=== PATIENT | female | born 1995 | race Caucasian/White ===

== ENCOUNTER 2020-05-25 08:44 | Outpatient (CLI) | payer OTHER, SELFPAY ==
--- NOTE | ~2020-05-25 | US_ITS ---
EXAMINATION: US right upper quadrant EXAM DATE: 05/25/2020 09:07 INDICATION: Right upper quadrant pain. TECHNIQUE: Multiple grayscale and Doppler images of the abdomen right upper quadrant were obtained (b y a technologist who performed the scan) and subsequently reviewed. There is no prior study for kike graham. FINDINGS: The pancreatic head and body are normal in appearance. The pancreatic tail is not visualized. The l iver has normal echogenicity and contour. There are no focal liver lesions identified. There is no evidence of intrahepatic biliary duct dilation. Portal venous flow was seen in the hepatopedal, nor mal direction and has normal Doppler waveform. No right-sided hydronephrosis. Common bile duct measures 3 mm, which is normal. The gallbladder wall is normal in thickness, with ex pected amount of distention. No sonographic evidence of pericholecystic fluid. There is no cholelit hiases. Technologist performing exam reports patient did not demonstrate sonographic Ceja's sign. Please note that this sign is less reliable in patients who have received pain medication. IMPRESSION: 1. Unremarkable abdominal ultrasound exam. Reviewed, dictated and finalized at location A. [employer]
== END 2020-05-25 08:45 | disposition home or self-care (01) ==
LOC: CHSIMG 08:47
PROVIDERS: PCP Internal Medicine; Visit Provider Internal Medicine
DX: R10.11 Right upper quadrant pain (principal)
CPT/HCPCS: 76705

== ENCOUNTER 2020-07-12 00:59 | Outpatient (CLI) | payer OTHER, SELFPAY ==
[2020-07-12 17:10] LABS: SARS-CoV-2 RNA PCR Negative
== END 2020-07-12 01:00 | disposition home or self-care (01) ==
LOC: ANHCOVIDDT 00:59
PROVIDERS: PCP Internal Medicine; Visit Provider Surgery
DX: Z01.818 Encounter for other preprocedural examination (principal); Z20.828 Contact with and (suspected) exposure to other viral communicable diseases
CPT/HCPCS: 87635; C9803; U0003

== ENCOUNTER 2020-07-15 00:59 | Day surgery (SDC) | payer OTHER, SELFPAY ==
[2020-07-07 13:42] VITALS: BMI 46.6
--- NOTE | 2020-07-15 06:54 | WPDANESEPPF ---
Anes - Initial Pre Proc Eval Procedure: Operation Date: 07/15/20 08:30 Proposed Procedures p Esophagogastroduodenoscopy - Napoleon Peralta DO Date/Time: 07/15/20 06:54 Surgeon: Napoleon Peralta DO Pre Op Diagnosis: gerd Patient Data Age: 24 Gender: F Height: 1.55 m Weight: 112 kg Allergies Allergy/AdvReac Type Severity Reaction Status Date / Time Penicillins Allergy Severe Redness of Verified 07/07/20 13:43 Skin Home Medications Medication Instructions Recorded Confirmed Type norgestrel-ethinyl estradiol 1 tablet PO DAILY 07/07/20 07/07/20 History [Low-Ogestrel (28)] pantoprazole 40 mg PO BID 07/07/20 07/07/20 History venlafaxine 37.5 mg PO HS 07/07/20 07/07/20 History Patient hx anesthesia problems: none Family hx anesthesia problems: none [facility] Past Medical History Medical History (Updated 07/15/20 @ 06:54 by Todd Nogueira MD) Anxiety Depression GERD (gastroesophageal reflux disease) Morbid obesity with BMI of 40.0-44.9, adult Social History Social History Smoking status: Never smoker Alcohol intake: never Substance use: never Substance use type: does not use Living arrangements: with family Spiritual care concerns: No Anes - Eval Final PreProcedure Day of Procedure 07/15/20 06:54 Patient weight: obese Heart: regular rate and rhythm Lungs: clear to auscultation and normal air movement Airway: Mallampati scale class II Neurological: alert and oriented Last oral intake: >/= 8 hours ASA classification: III Emergent: no Anesthetic plan: proceed Anesthesia type and monitoring: general GIVS Informed Consent: The patient's anesthetic plan and its attendant risks and benefits were discussed with the patient/family/POA. Questions were solicited and answers provided to the satisfaction of the patient/family/POA.
[2020-07-15 07:07] VITALS: BP 189/140; PULSE 114; RESP 18; TEMP 36.5; O2SAT 99
[2020-07-15] MEDS: LACTATED RINGERS 1,000 ML 150 ML IV CONT (07:13)
--- NOTE | 2020-07-15 08:24 | PM.IMHP ---
H&P: HPI History of Present Illness Date/Time: 07/15/20 08:24 Chief Complaint: GERD Narrative: Bernie Barrientos is a 24 year old female presents with acid reflux for the past month. she has not identified any certain foods that make it worse. She gets heartburn and reflux daily. Review of Systems Review of Systems: All systems reviewed & are unremarkable except as noted in HPI and below Constitutional: Constitutional: Denies chills, Denies fever(s), Denies headache(s) and Denies weight loss Eyes: Eyes: Denies change in vision ENT: Denies dizziness, Denies headache(s), Denies neck mass and Denies throat swelling Cardiovascular: Cardiovascular: Denies chest pain, Denies lightheadedness and Denies dyspnea Respiratory: Respiratory: Denies cough, Denies dyspnea and Denies wheezing Gastrointestinal: Gastrointestinal: Denies abdominal pain, Denies change in bowel habits, Denies nausea and Denies vomiting Genitourinary: Genitourinary: Denies hematuria and Denies dysuria Musculoskeletal: Musculoskeletal: Reports as per HPI Integumentary/Breasts: Skin/Breast: Reports as per HPI Neurologic: Denies dizziness and Denies headache(s) Allergic/Immunologic: Allergic/Immunologic: Denies throat swelling and Denies wheezing PMF Past Medical History Medical History Anxiety Depression GERD (gastroesophageal reflux disease) Morbid obesity with BMI of 40.0-44.9, adult Social History Social History Smoking status: Never smoker Alcohol intake: never Substance use: never Substance use type: does not use Living arrangements: with family Spiritual care concerns: No Meds Home Medications and Allergies Home Medications Medication Instructions Recorded Confirmed Type norgestrel-ethinyl estradiol 1 tablet PO DAILY 07/07/20 07/07/20 History [Low-Ogestrel (28)] pantoprazole 40 mg PO BID 07/07/20 07/07/20 History venlafaxine 37.5 mg PO HS 07/07/20 07/07/20 History Allergies Allergy/AdvReac Type Severity Reaction Status Date / Time Penicillins Allergy Severe Redness of Verified 07/15/20 07:05 Skin Vital Signs Vital Signs - 24 hr 07/15/20 07:07 Temperature 36.5 C Pulse Rate 114 H Respiratory Rate 18 Blood Pressure 189/140 H Pulse Oximetry 99 Exam Const: General: no acute distress and alert Orientation/consciousness: patient oriented x3 HENMT: Head: normocephalic and atraumatic Ears: hearing grossly normal bilaterally General nose exam: Normal nares present Mouth: Yes Normal oral and palatal mucosa present Eyes: Periorbital: periorbital findings normal Sclera: sclerae normal EOM: EOMs intact bilaterally Neck: Neck: normal visual inspection, no lymphadenopathy and trachea midline Chest: Chest palpation & inspection: normal inspection of the chest Resp: Effort & Inspection: normal respiratory effort Auscultation: clear to auscultation bilaterally Cardio: Jugular venous distension: no JVD Rate: regular rate Rhythm: regular rhythm Heart sounds: S1 normal heart sound present and S2 normal heart sound present Peripheral pulses: Peripheral pulses 2+ throughout GI: Inspection: normal to inspection GI Palp: Yes Soft to palpation, No Tenderness to palpation present (GI), No Guarding due to palpation present (GI) and No Rebound tenderness present Percussion: Yes normal to percussion Auscultation: normal bowel sounds : General: Yes no CVA tenderness Back/Spine/Pelvis: Back: no CVA tenderness Neuro: General: patient oriented x3, no focal motor deficits and CN's II-XI intact bilaterally Cognition (Neuro): normal cognition Speech: normal speech Motor exam (neuro): 5/5 motor strength present throughout Extrem: General: capillary refill normal and no clubbing, cyanosis or edema Assessment and Plan Assessment and plan (1) GERD (gastroesophageal reflux disease):
[2020-07-15 08:40] VITALS: BP 152/106; PULSE 94; RESP 25; O2SAT 94
[2020-07-15 08:50] VITALS: BP 163/109; PULSE 87; RESP 21; O2SAT 97
[2020-07-15 09:00] VITALS: BP 178/116; PULSE 84; RESP 18; O2SAT 99
== END 2020-07-15 09:11 | disposition home or self-care (01) ==
PROVIDERS: PCP Internal Medicine; Visit Provider Surgery
PROC: 0DJ08ZZ Inspection of Upper Intestinal Tract, Via Natural or Artificial Opening Endoscopic (ICD-10-PCS; CPT 43235; principal; 2020-07-15 08:30)
DX: K21.9 Gastro-esophageal reflux disease without esophagitis (principal); F41.8 Other specified anxiety disorders; E66.01 Morbid (severe) obesity due to excess calories; Z68.42 Body mass index [BMI] 45.0-49.9, adult
CPT/HCPCS: 43235; J2704; J7120

== ENCOUNTER 2020-10-18 10:22 | Outpatient (CLI) | payer OTHER, SELFPAY ==
--- NOTE | ~2020-10-18 | US_ITS ---
EXAMINATION: US retroperitoneal comp, US retroperitoneal duplex ltd DATE: 10/18/2020 10:53 INDICATION: hypertension TECHNIQUE: Multiple grayscale, color Doppler, and pulsed Doppler images of the kidneys and renal umesh jamin were obtained. COMPARISON: None. FINDINGS: There is normal renal contour and echogenicity bilaterally. The right kidney measures 11.4 x 5.2 x 6. 6 cm and the left 11.0 x 6.1 x 4.8 cm. 1.7 cm anechoic cyst at the lateral right kidney. There is no hydronephrosis. The aorta peak systolic velocity is 73 cm/s. The right renal artery peak systolic velocity is 132 cm/ s in the proximal segment, 112 cm/s in the mid segment, and 82 cm/s in the distal segment. The left r enal artery peak systolic velocity is 94 cm/s in the proximal segment, 91 cm/s in the mid segment, an d 98 cm/s in the distal segment. IMPRESSION: 1. 1.7 cm right renal cyst. Otherwise normal kidneys with no hydronephrosis. 2. No Doppler evidence of renal artery stenosis. Reviewed, dictated and finalized at location B. IMPRESSION: 1. 1.7 cm right renal cyst. Otherwise normal kidneys with no hydronephrosis. 2. No Doppler evidence of renal artery stenosis.
== END 2020-10-18 10:23 | disposition home or self-care (01) ==
LOC: CHSIMG 10:24
PROVIDERS: PCP Internal Medicine; Visit Provider Internal Medicine
DX: I10 Essential (primary) hypertension (principal)
CPT/HCPCS: 76770; 93976

== ENCOUNTER 2020-10-29 16:20 | Emergency (ER) | payer OTHER, SELFPAY ==
--- NOTE | 2020-10-29 16:34 | ED.DIZZY ---
HPI - Dizziness General Chief Complaint: Nausea/Vomiting/Diarrhea Stated Complaint: not eating, dizzy Time Seen by Provider: 10/29/20 16:34 Source: patient and RN notes reviewed Mode of arrival: ambulatory Limitations: no limitations History of Present Illness MD elicited complaint: lightheadedness Related Data Home Medications Medication Instructions Recorded Confirmed Low-Ogestrel (28) 1 tablet PO DAILY 07/07/20 07/07/20 pantoprazole 40 mg PO BID 07/07/20 07/07/20 venlafaxine 37.5 mg PO HS 07/07/20 07/07/20 Allergies Allergy/AdvReac Type Severity Reaction Status Date / Time Penicillins Allergy Severe Redness of Verified 07/15/20 07:05 Skin PMFSH Past Medical History Medical History (Updated 07/15/20 @ 08:25 by Napoleon Peralta DO) Anxiety Depression GERD (gastroesophageal reflux disease) Morbid obesity with BMI of 40.0-44.9, adult Social History Social History Smoking status: Never smoker Alcohol intake: never Substance use: never Substance use type: does not use Spiritual care concerns: No Discharge Plan Discharge Prescriptions: No Action venlafaxine 37.5 mg capsule,extended release 24hr 37.5 mg PO HS RF: 0 Low-Ogestrel (28) 0.3-30 mg-mcg tablet 1 tablet PO DAILY RF: 0 pantoprazole 40 mg tablet,delayed release (DR/EC) 40 mg PO BID RF: 0
--- NOTE | 2020-10-29 16:42 | ED.NAVMDI ---
HPI - Nausea/Vomiting/Diarrhea General Chief complaint: Nausea/Vomiting/Diarrhea Stated complaint: not eating, dizzy Time Seen by Provider: 10/29/20 16:34 Source: patient and RN notes reviewed Mode of arrival: ambulatory Limitations: no limitations History of Present Illness MD elicited complaint: nausea, vomiting and abdominal pain (epigastric) Pertinent past history: other (GERD) Onset (ago): day(s) (1) Description of vomiting: food contents Associated nausea: Yes Associated abdominal pain: Yes Location of pain: epigastric Pain consistency: intermittent Severity: moderate Associated symptoms: other (dizziness) Treatment prior to arrival: none Related Data Home Medications Medication Instructions Recorded Confirmed Low-Ogestrel (28) 1 tablet PO DAILY 07/07/20 10/29/20 pantoprazole 40 mg PO BID 07/07/20 10/29/20 venlafaxine 37.5 mg PO HS 07/07/20 10/29/20 amlodipine 10 mg PO DAILY 10/29/20 10/29/20 Allergies Allergy/AdvReac Type Severity Reaction Status Date / Time Penicillins Allergy Severe Redness of Verified 07/15/20 07:05 Skin PMFSH Past Medical History Medical History (Updated 10/29/20 @ 18:49 by Ward Clifton MD) Anxiety Depression GERD (gastroesophageal reflux disease) Morbid obesity with BMI of 40.0-44.9, adult Surgical History Surgical History (Updated 10/29/20 @ 17:04 by Ward Clifton MD) [place] teeth extracted Social History Social History Smoking status: Never smoker Alcohol intake: never Substance use: never Substance use type: does not use Spiritual care concerns: No Exam Const: General: healthy appearing and no acute distress Nutritional Appearance: well nourished and obese morbidly obese Orientation/consciousness: patient oriented x3 Other: female nurse in room during examination. HENMT: Head: normal to inspection Ears: external ears normal Eyes: Pupils: Equal, round and reactive pupils present EOM: EOMs intact bilaterally Neck: Neck: normal visual inspection Resp: Effort & Inspection: normal respiratory effort Auscultation: clear to auscultation bilaterally Cardio: Rate: tachycardic Rhythm: regular rhythm GI: GI Palp: Yes Soft to palpation, Yes Tenderness to palpation present (GI) (epigastric), Yes Guarding due to palpation present (GI) and No Rebound tenderness present Auscultation: normal bowel sounds Back/Spine/Pelvis: Cervical Spine: cervical ROM normal Thoracic/Lumbar Spine: thoraco-lumbar ROM normal Skin: General skin exam: normal color Rashes: no rashes Neuro: General: patient oriented x3, moves all extremities, no meningeal signs and no focal motor deficits Speech: normal speech Gait exam (Neuro): Normal gait present Extrem: General: normal to inspection and no clubbing, cyanosis or edema Psych: Appearance: grossly normal and well kempt Mental Status: mental status grossly normal Affect: normal affect Attitude: cooperative Thought content: Yes Normal thought content present Course Vital Signs Vital signs: Vital Signs Temperature 36.6 C 10/29/20 16:45 Pulse Rate 110 H 10/29/20 16:45 Respiratory Rate 16 10/29/20 16:45 Blood Pressure 138/99 H 10/29/20 16:45 Pulse Oximetry 98 10/29/20 16:45 Temperature 36.6 C 10/29/20 16:45 Pulse Rate 94 10/29/20 19:00 Respiratory Rate 18 10/29/20 19:00 Blood Pressure 142/96 H 10/29/20 19:00 Pulse Oximetry 96 10/29/20 19:00 MDM - Nausea/Vomiting/Diarrhea Lab Data Result diagrams: 10/29/20 17:19 10/29/20 17:19 Labs: Lab Results 10/29/20 10/29/20 10/29/20 Range/Units 17:19 17:19 17:25 WBC 10.8 (4.8-10.8) K/mm3 RBC 5.03 (4.20-5.40) M/mm3 Hgb 13.7 (12.0-15.0) g/dL Hct 41.3 (35.0-49.0) % MCV 82.1 (78.0-102.0) fL MCH 27.2 (27.0-31.0) pg MCHC 33.2 (32.0-36.0) g/dL RDW 12.8 (11.6-14.4) % Plt Count 402 (150-420) K/mm3 MPV 8.9
[2020-10-29 16:45] VITALS: BP 138/99; PULSE 110; RESP 16; TEMP 36.6; O2SAT 98
[2020-10-29] MEDS: MAG HYDROX/ALUMINUM HYD/SIMETH 30 ML, PHENobarb/HYOSCY/ATROPINE/SCOP 32.4 MG, LIDOCAINE... PO (17:06)
--- NOTE | 2020-10-29 17:22 | PC.NURSE ---
Pt states epigastric pain is getting better, but still having some nausea.
[2020-10-29 17:24] LABS: Basophils Absolute Auto 0.03 K/mm3 (0.00-0.10); Basophils Percent Auto 0.3 % (0.0-1.0); Eosinophils Absolute Auto 0.03 K/mm3 (0.02-0.50); Eosinophils Percent Auto 0.3 % (1.0-6.0); Hematocrit 41.3 % (35.0-49.0); Hemoglobin 13.7 g/dL (12.0-15.0); Immature Granulocyte Absolute 0.03 K/mm3 (0.00-0.00); Immature Granulocyte Percent A 0.3 % (0.0-0.0); Lymphocytes Absolute Auto 2.23 K/mm3 (1.10-4.50); Lymphocytes Percent Auto 20.6 % (18.0-42.0); Mean Corpuscular HGB Conc 33.2 g/dL (32.0-36.0); Mean Corpuscular Hemoglobin 27.2 pg (27.0-31.0); Mean Corpuscular Volume 82.1 fL (78.0-102.0); Mean Platelet Volume 8.9 fl (9.2-11.8); Monocytes Absolute Auto 0.58 K/mm3 (0.10-0.90); Monocytes Percent Auto 5.4 % (2.0-11.0); Neutrophils Absolute Auto 7.9 K/mm3 (1.7-7.2); Neutrophils Percent Auto 73.1 % (50.0-70.0); Platelet Count Result 402 K/mm3 (150-420); Red Blood Count 5.03 M/mm3 (4.20-5.40); Red Cell Distribution Width 12.8 % (11.6-14.4); White Blood Count 10.8 K/mm3 (4.8-10.8)
[2020-10-29] MEDS: ONDANSETRON HCL ODT 4 MG TABLET PO (17:24)
[2020-10-29 17:39] LABS: Alanine Aminotransferase 23 U/L (14-59); Albumin Level 3.7 g/dL (3.4-5.0); Alkaline Phosphatase 68 U/L (46-116); Anion Gap 12 mmol/L (8-16); Aspartate Amino Transferase 16 U/L (15-37); Bilirubin,Total 0.5 mg/dL (0.00-1.00); Blood Urea Nitrogen 10 mg/dL (7-18); Calcium 9.4 mg/dL (8.5-10.1); Carbon Dioxide 25 mmol/L (21-32); Chloride 100 mmol/L (98-108); Estimated CRCL calculation 80 ml/min; Estimated Glomerular Filt Rate 60; Glucose 91 mg/dL (70-99); Lipase 72 U/L (73-393); Osmolality Calculated 283 mOsm/kg (285-295); Potassium 3.8 mmol/L (3.5-5.1); Sodium 137 mmol/L (136-145); Total Protein 8.2 g/dL (6.4-8.2)
--- NOTE | 2020-10-29 17:41 | PC.NURSE ---
Pt unable to provide urine sample.
[2020-10-29 17:51] LABS: CRP 2.4 mg/dL (0.0-0.9)
--- NOTE | 2020-10-29 18:08 | PC.NURSE ---
Pt given oral fluids, mother at bedside
[2020-10-29 18:39] LABS: Add Urine Microscopic? YES; Appearance Urine Clear (Clear); Bilirubin Urine 1+ (Negative); Blood Urine Negative (Negative); Color Urine Yellow (Yellow); Glucose Urine UA Negative (Negative); Ketones Urine 2+ (Negative); Leukocyte Esterase Ur Negative LEU/UL (Negative); Nitrate Urine Negative (Negative); Protein Urine 1+ (Negative); Specific Grav Ur >= 1.030 (1.010-1.020); Urobilinogen Urine 0.2 mg/dL (0.2-1.0); pH Urine 5.5 (5.0-8.0)
[2020-10-29 18:45] LABS: RBC Urine 0-2 /hpf (0-2); Squamous Epithelial Cell Urine Few /hpf (Few)
[2020-10-29 18:46] LABS: Bacteria Urine 1+ /hpf; Mucus Urine Few /lpf
[2020-10-29 19:00] VITALS: BP 142/96; PULSE 94; RESP 18; O2SAT 96
== END 2020-10-29 19:00 | disposition home or self-care (01) ==
PROVIDERS: Emergency Provider Emergency Medicine; PCP Internal Medicine
DX: K52.9 Noninfective gastroenteritis and colitis, unspecified (principal); N39.0 Urinary tract infection, site not specified
CPT/HCPCS: 36415; 80053; 81001; 83690; 85025; 86140; 99283; A9270

== ENCOUNTER 2023-09-13 15:12 | Outpatient (CLI) | payer OTHER, SELFPAY ==
--- NOTE | 2023-10-09 15:41 | P.PCNHOL_ITS ---
Holter/Event Monitor Holter/Event Monitor Date of procedure: 09/13/23 Holter/Event Procedure: Event Monitor Indications: Syncope Conclusion: 1. 7 days event monitor between 09/13/23-10/09/23. There are 16 available tra nsmissions for analysis. 2. Underlying rhythm is sinus rhythm. HR range 50-154 bpm; average 72 bpm. 3. No premature supraventricular complexes. No supraventricular tachycardia. 4. There are occasional premature ventricular complexes with total burden of 1%. No ventricular tachycardia. 5. No significant pauses greater than 2 seconds. 6. There are 3 episodes of symptoms of lightheadedness, dizziness, chest pain, and symptom other than listed which demonstrate sinus rhythm, HR range 62-105 bpm.
== END 2023-09-13 15:13 | disposition home or self-care (01) ==
PROVIDERS: PCP Internal Medicine; Visit Provider Internal Medicine
DX: R55 Syncope and collapse (principal)
CPT/HCPCS: 93270

== ENCOUNTER 2024-04-11 15:35 | Emergency (ER) | payer OTHER, SELFPAY ==
--- NOTE | ~2024-04-11 | CT_ITS ---
EXAMINATION: CT abdomen pelvis wo con DATE: 04/11/2024 16:25 INDICATION: LLQ abdominal pain x1 day TECHNIQUE: Computed tomography (CT) of the abdomen and pelvis was performed without intravenous contr ast. Automated exposure control and iterative reconstruction technique were employed. The dose-length product was 891.47 mGy-cm. COMPARISON: None. FINDINGS: Lower thorax: Unremarkable Liver: Enlarged. Biliary/Gallbladder: Gallbladder is normal. No bile duct dilation. Pancreas: No mass or duct dilation. Spleen: Normal. Adrenals:No mass. Kidneys: Mild left perinephric stranding and hydronephrosis. Punctate nonobstructing left midpole sissy cification. No suspicious masses. Ill-defined hyperdensity in the right midpole may reflect a compone nt of nephrocalcinosis. GI tract: Prior gastric surgery. No small or large bowel dilation. Normal appendix. Mesentery/Peritoneum: No ascites, mass, or free air. Retroperitoneum: No mass. Pelvis: Mostly empty urinary bladder. Normal uterus and bilateral ovaries. 5 mm calcification in the left UVJ. Soft Tissues: Uncomplicated fat-containing umbilical and supraumbilical hernias. Bones: No acute osseous finding. IMPRESSION: Hepatomegaly. 5 mm left UVJ stone causing mild obstructive uropathy. Reviewed, dictated and finalized at location K.
[2024-04-11 15:36] VITALS: BP 145/99; PULSE 78; RESP 20; TEMP 36.6; O2SAT 97
--- NOTE | 2024-04-11 15:44 | ED.ABDPAIN ---
HPI - Abdominal Pain General Chief Complaint: Abdominal Pain Stated Complaint: lower back pain Source: patient Mode of arrival: ambulatory Limitations: no limitations History of Present Illness HPI narrative: Patient is a 28-year-old female with prior gastric bypass surgery in otherwise no other surgeries. She is here with left lower quadrant abdominal pain that is also in her left side and left back. It is not a radiating pain. It is all 1 pain at the same time. No nausea vomiting or diarrhea. She had a normal bowel movement this morning. No fever or chills. MD elicited complaint: abdominal pain Pertinent past history: none Onset (ago): day(s) (1 ; last night) Pain Consistency: intermittent ( she took a Mullins and it got better but returned thereafter) Location: LLQ and L flank Severity: moderate Pain scale (0-10): 5 Quality: other ( squeezing) Radiation: back ( left lower back) Migration to: no migration Exacerbating factors: nothing Relieving factors: nothing Associated symptoms: denies other symptoms Treatments prior to arrival: other ( Mullins) Related Data Home Medications Medication Instructions Recorded Confirmed buspirone 15 mg tablet 15 mg PO BID 10/22/23 04/11/24 escitalopram oxalate 10 mg tablet 10 mg PO DAILY 10/22/23 04/11/24 metoprolol succinate 50 mg 50 mg PO DAILY 10/22/23 04/11/24 tablet,extended release 24 hr norgestrel 0.3 mg-ethinyl 1 tablet PO DAILY 04/11/24 04/11/24 estradiol 30 mcg tablet (Gricel (28)) Allergies Allergy/AdvReac Type Severity Reaction Status Date / Time Penicillins Allergy Severe Redness of Verified 04/11/24 15:42 Skin Review of Systems Review of Systems: All systems reviewed & are unremarkable except as noted in HPI and below Constitutional: Constitutional: Reports no additional constitutional complaints Eyes: Eyes: Reports no additional eye complaints ENT: Reports system reviewed and no additional complaints, except as documented Cardiovascular: Cardiovascular: Reports no additional cardiovascular complaints Respiratory: Respiratory: Reports no additional respiratory complaints Gastrointestinal: Gastrointestinal: Reports no additional gastrointestinal complaints Genitourinary: Genitourinary: Reports no additional female genitourinary complaints Musculoskeletal: Musculoskeletal: Reports no additional musculoskeletal complaints Integumentary/Breasts: Skin/Breast: Reports system reviewed and no additional complaints, except as docu Neurologic: Reports system reviewed and no additional complaints, except as documented Psychiatric: Psychiatric: Reports no additional psychiatric complaints Endocrine: Endocrine: Reports no additional endocrine complaints Hematologic/Lymphatic: Hematologic/Lymphatic: Reports no additional hematologic/lymphatic complaints Allergic/Immunologic: Allergic/Immunologic: Reports no additional allergic/immunologic complaints PMFSH Past Medical History Medical History Anxiety Depression GERD (gastroesophageal reflux disease) Morbid obesity with BMI of 40.0-44.9, adult Surgical History Surgical History [place] teeth extracted Social History Social History Smoking status: Never smoker Alcohol intake: never Substance use: never Substance use type: does not use Do You Feel Safe in your Home?: Yes Lack of Transportation: No Lack of Food: Never True Current Housing: I Have Housing Concerned About Future Housing: No Difficulty Paying Gas/Electric Bills: No Difficulty Paying for Meds: No Currently Unemployed: Decline to Answer Education: Master's Degree or Higher Difficulty w/ Childcare or Family Care: No Living arrangements: with family Spiritual care concerns: No Exam Const: General: healthy appearing Nutritional Ap
[2024-04-11 16:02] LABS: Add Urine Microscopic? YES; Appearance Urine Sl Cloudy (Clear); Bilirubin Urine Negative (Negative); Blood Urine 1+ (Negative); Color Urine Yellow (Yellow); Glucose Urine UA Negative (Negative); Ketones Urine Negative (Negative); Leukocyte Esterase Ur Negative LEU/UL (Negative); Nitrate Urine Negative (Negative); Protein Urine Trace (Negative); Specific Grav Ur >= 1.030 (1.010-1.020); pH Urine 5.5 (5.0-8.0)
[2024-04-11 16:12] LABS: Bacteria Urine 3+ /hpf; Calcium Oxalate Crystals Urine Present /hpf; Squamous Epithelial Cell Urine Moderate /hpf (Few); WBC Urine 0-3 /hpf (0-3)
[2024-04-11 16:13] LABS: Pregnancy On Board Control Positive; Urine Pregnancy Test Negative
[2024-04-11 16:14] LABS: Basophils Absolute Auto 0.05 K/mm3 (0.00-0.10); Basophils Percent Auto 0.4 % (0.0-1.0); Eosinophils Absolute Auto 0.08 K/mm3 (0.02-0.50); Eosinophils Percent Auto 0.6 % (1.0-6.0); Hematocrit 38.8 % (35.0-49.0); Hemoglobin 12.7 g/dL (12.0-15.0); Immature Granulocyte Absolute 0.05 K/mm3 (0.00-0.00); Immature Granulocyte Percent A 0.4 % (0.0-0.0); Lymphocytes Absolute Auto 2.79 K/mm3 (1.10-4.50); Lymphocytes Percent Auto 21.7 % (18.0-42.0); Mean Corpuscular HGB Conc 32.7 g/dL (32-36); Mean Corpuscular Hemoglobin 28.1 pg (27.0-31.0); Mean Corpuscular Volume 85.8 fL (78.0-102.0); Mean Platelet Volume 9.7 fl (9.2-11.8); Monocytes Absolute Auto 0.89 K/mm3 (0.10-0.90); Monocytes Percent Auto 6.9 % (2.0-11.0); Neutrophils Absolute Auto 8.97 K/mm3 (1.70-7.20); Platelet Count Result 335 K/mm3 (150-420); Red Blood Count 4.52 M/mm3 (4.20-5.40); Red Cell Distribution Width 12.8 % (11.6-14.4); White Blood Count 12.8 K/mm3 (4.8-10.8)
[2024-04-11 16:33] LABS: Lactic Acid Reflex 1.2 mmol/L (0.4-2.0)
[2024-04-11 16:36] LABS: Alanine Aminotransferase 25 U/L (14-59); Albumin Level 3.5 g/dL (3.4-5.0); Alkaline Phosphatase 85 U/L (46-116); Anion Gap 15 mmol/L (4-12); Aspartate Amino Transferase 24 U/L (15-37); Bilirubin,Total 0.5 mg/dL (0.00-1.00); Blood Urea Nitrogen 19 mg/dL (7-18); Calcium 8.8 mg/dL (8.5-10.1); Carbon Dioxide 22 mmol/L (21-32); Chloride 103 mmol/L (98-108); Estimated CRCL calculation 58 ml/min; Estimated Glomerular Filt Rate 46; Glucose 90 mg/dL (70-99); Lipase 35 U/L (16-77); Osmolality Calculated 292 mOsm/kg (285-295); Potassium 4.1 mmol/L (3.5-5.1); Sodium 140 mmol/L (136-145); Total Protein 7.2 g/dL (6.4-8.2)
[2024-04-11] MEDS: CIPROFLOXACIN 500 MG TAB PO (17:12)
[2024-04-11] MEDS: KETOROLAC 30 MG/ML VIAL (*BKC) IV PUSH (17:13)
[2024-04-11] MEDS: SODIUM CHLORIDE 0.9% IV 1,000 ML 999 ML IV CONT (17:13)
[2024-04-11] MEDS: TAMSULOSIN HCL 0.4 MG CAPSULE PO (18:40)
[2024-04-11 18:42] VITALS: BP 133/87; PULSE 78; RESP 18; TEMP 36.6; O2SAT 100
== END 2024-04-11 18:45 | disposition home or self-care (01) ==
PROVIDERS: Emergency Provider Emergency Medicine; PCP Internal Medicine
DX: N20.1 Calculus of ureter (principal); N17.9 Acute kidney failure, unspecified; N30.01 Acute cystitis with hematuria; E86.0 Dehydration; Z98.84 Bariatric surgery status; Z79.899 Other long term (current) drug therapy
CPT/HCPCS: 36415; 74176; 80053; 81001; 81025; 83605; 83690; 85025; 96361; 96374; 99284; A9270; J1885; J7030

== ENCOUNTER 2025-01-29 22:42 | Emergency (ER) | payer OTHER, SELFPAY ==
--- NOTE | ~2025-01-29 | CT_ITS ---
EXAMINATION: CT abdomen pelvis wo con DATE: 01/29/2025 23:52 INDICATION: left flank pain, h/o stones TECHNIQUE: Computed tomography (CT) of the abdomen and pelvis was performed without intravenous contr ast. Automated exposure control and iterative reconstruction technique were employed. The dose-length product was 519.43 mGy-cm. COMPARISON: 04/11/2024. FINDINGS: Lower thorax: Unremarkable Liver: Normal. Biliary/Gallbladder: Gallbladder is normal. No bile duct dilation. Pancreas: No mass or duct dilation. Spleen: Normal. Adrenals:No mass. Kidneys: Normal right kidney. Moderate right perinephric stranding/fluid. 5 mm calcification in the p roximal right ureter. Mild pelviectasis and caliectasis. GI tract: Prior gastric surgery. Uncomplicated small bowel anastomosis. No small or large bowel dilat ion. Normal appendix. Mesentery/Peritoneum: No ascites, mass, or free air. Central mesenteric stranding, a chronic finding. Retroperitoneum: No mass. Pelvis: Nearly empty urinary bladder. Normal uterus and bilateral ovaries.. Soft Tissues: Small fat-containing umbilical and supraumbilical hernias. Bones: No acute osseous finding. IMPRESSION: 5 mm calcification in the proximal left ureter, with perinephric stranding that is out of proportion to the degree of hydronephrosis, consider urine leak. Nonspecific chronic central mesenteric stranding. Reviewed, dictated and finalized at location K.
[2025-01-29 22:42] VITALS: BP 167/105; PULSE 98; RESP 18; TEMP 36.4; O2SAT 98
--- OUTSIDE RECORDS SUMMARY | 2025-01-29 22:45 | XMS_ITS | Clinical Summary ---
Author Organization [facility] Address [address] [place] [address] Care Team Providers Care Metal Filer Name Role Phone Lu Rodriguez MD Primary Care Provider [phone] Source Comments [facility],non-owned Affiliates and Associated Physician Practices is amultiple site organization consisting of ambulatory clinics and hospital sitesin [place], [place], [place] and [place]. This disclosure is being madepursuant to the Care Everywhere program and may not contain all information available regarding this patient. Last updated 18.[facility] Allergies Active Allergy Reactions Criticality Noted Date Comments Penicillins Itching 09/29/2022 Medications * This document contains information received from the source organization and may not represent a complete record from that organization. * Be aware that medications may not be up to date on this document. Alwaysverify current medications with the patient. amLODIPine (Norvasc) 10 MG tablet Take 1 (one) tablet by mouth every evening 3 Active atorvastatin (Lipitor) 10 MG tablet 1 (one) tablet at bedtime 3 Active busPIRone (Buspar) 15 MG tablet Take 1 (one) tablet by mouth every evening 3 Active escitalopram (Lexapro) 10 MG tablet Take 1 (one) tablet by mouth at bedtime 3 Active melatonin 5 MG tablet Take 0.5 (one-half) tablet by mouth at bedtime Active oxyCODONE (Roxicodone) 5 MG/5ML oral solutionIndicat ions:Morbid obesity (HCC) Take 5 mL by mouth every 6 hours as needed for Pain 120 mL 3 Active Additional Information Patient not taking.Reported on 02/06/2023 acetaminophen (Tylenol) 160 MG/5ML solution Take 31.25 mL by mouth every 8 hours 3 Active Additional Information Patient not taking.Reported on 02/06/2023 magnesium hydroxide (Milk Of Magnesia) 400 MG/5ML suspension Take 15 mL by mouth as needed 3 Active Additional Information Patient not taking.Reported on 02/06/2023 ondansetron, disintegrating, (Zofran ODT) 4 MG tablet Take 1 (one) tablet by mouth every 6 hours as needed for Nausea/Vomiting Allow tablet to dissolve on the tongue 20 tablet 3 Active omeprazole (PriLOSEC) 20 MG capsule Take 1 (one) capsule by mouth once daily 30 capsule 3 Active senna-docusate (Senokot-S) 8.6-50 MG tablet Take 1 (one) tablet by mouth 2 times daily as needed for Constipation 3 Active Additional Information Patient not taking.Reported on 02/06/2023 magnesium hydroxide (Milk Of Magnesia) 400 MG/5ML suspension Take 15 mL by mouth as needed for Constipation 3 Active Additional Information Patient not taking.Reported on 02/06/2023 cyclobenzaprine (Flexeril) 10 MG tablet Take 1 (one) tablet by mouth 3 times daily as needed for Muscle Spasms 30 tablet 3 Active omeprazole EC (PriLOSEC OTC) 20 MG tablet Take 1 (one) tablet by mouth as needed for Heartburn 30 tablet 1 3 Active sucralfate (Carafate) 1 GM/10ML suspension Take 10 mL by mouth 4 times daily 1200 mL 3 Active prochlorperazin e (Compazine) 10 MG tablet Take 1 (one) tablet by mouth every 8 hours as needed 30 tablet 3 Active Active Problems Problem Noted Date Diagnosed Date Morbid obesity 01/29/2023 Hypercholesterolemia 12/04/2011 Overview (12/04/2011): Hgb a1c normal today. Lipid panel not done fasting. Triglycerides are elevated but this is not helpful as not fasting. Cholesterol total 217 with LDL 133 and HDL 43. Called and recommended increased activity, decreased sugars and decreased calories. Assessment & Plan (12/30/2013 2:59 PM CDT): Reviewed. Suggested repeat lipids but refused. No family history of diabetes despite obesity. Obesity 12/28/2010 Overview (12/04/2011): Pt weight today 77 lbs, >95%, BMI 32. Light activity, poor eating habits. Anticipatory guidance given to risk of Diabetes, hyperlipidemia, etc. Plan: Encouraged to walk daily Discussed decreasing soda and sugary drink intake. Encouraged to eat 3 balanced meals. HgA1c, ALT, lipids today. Assessment & Plan (12/30/2013 2:58 PM CDT): BMI now 37. Participates in shot put and discus and marching band and has been trying to walk with parents. Discussed portion control, drinking water instead of soda and juice Discussed ovulation irregularities with obesity DUB (dysfunctional uterine bleeding) 01/05/2010 Overview (12/04/2011): H/o hgb of 4.2 in September 2008. On Ovral 2 consecutive months for 6 months. Then having monthly periods for 6 months. Switched to Lo-Ovral in December 2009 from Ovral. Improved hirsuitism and acne on Lo/Ovral. Currently takes for 9 weeks and off 1 week. Period 5-7 days, light flow, no breakthrough. Rare occ HERNANDEZ or cramps, takes Ibuprofen or Midol. No symptoms of fatigue/anemia. Plan: Continue LoOvral, refills X12 mos CBC today. RTC in 1 year Assessment & Plan (12/30/2013 2:55 PM CDT): Happy with LoOvral used with periods every 12 weeks. Refilled x 12. Next year, will obtain rx from PCP. No history of BTB or heavy bleeding Vitamin D deficiency 01/05/2010 Overview (12/04/2011): Initially recommended 1000IU Vit D daily. Has not been taking, mother working to get her to take. Plan: 50,000 IU Vit D q7 days Vit D today Recheck Vit D level in 3-4 months. Assessment & Plan (12/30/2013 2:56 PM CDT): Low Vitamin D level in 2012. Refuses Vitamin D today. Recommended Vitamin D 1000 to 2000 IU daily and explained rationale. Resolved Problems Problem Noted Date Diagnosed Date Resolved Date Acne 12/28/2010 12/04/2011 Overview (12/28/2010): Mild acne but pt has been using OTC Clearasil cleansing pads. Recommeded using topical Benzoylperoxide Family History Medical History Relation Name Comments Menstrual issues Maternal Grandmother napoleon vhoma bleeding requiring blood transfusion Obesity Mother Allergies Neg Hx Asthma Neg Hx Relation Name Status Comments Father Alive Maternal Grandmother Mother Alive Social History Tobacco Use Types Packs/Day Years Used Date Smoking Tobacco: Never Alcohol Use Standard Drinks/Week Comments No 0 (1 standard drink = 0.6 oz pur e alcohol) Overall Financial Resource Strain (CARDIA) Answe r Date Recorded How hard is it for you to pa y for the very basics like food, housing, medical care, and heating? Not hard at all 01/29/2023 [facility] - Occupational Stress Questionnaire Answer Date Recorded Do you feel stress - tense, restless, nervous, or anxious, or unable to sleep at night because your mind is troubled all the time - these days? Not at all 01/29/2023 Hunger Vital Sign Answer Date Recorded Within the past 12 months, y ou worried that your food would run out before you got the money to buy more. Never true 01/30/20 23 Within the past 12 months, t he food you bought just didn't last and you didn't have money to get more. Never true 01/29/2023 PRAPARE - Transportation Answer Date Re corded In the past 12 months, has l ack of transportation kept you from medical appointments or from getting medications? No 01/13 In the past 12 months, has l ack of transportation kept you from meetings, work, or from getting things needed for daily living? No 01/29/2023 Housing Stability Vital Sign Answer Pito e Recorded In the last 12 months, was t here a time when you were not able to pay the mortgage or rent on time? No 01/29/2023 In the last 12 months, how many places have you lived? 1 01/29/2023 In the last 12 months, was t here a time when you did not have a steady place to sleep or slept in a custodial (including now)? No 01/29/2023 Comments No Sex and Gender Information Value Date Recorded Sex Assigned at Female 09/22/2022 1:21 PM SALES FLOOR ASSOCIATE Legal Sex Female 7:34 AM SALES FLOOR ASSOCIATE Gender Identity Female 09/22/2022 1:21 PM SALES FLOOR ASSOCIATE Sexual Orientation Straight 09/22/2022 1: 21 PM SALES FLOOR ASSOCIATE Last Filed Vital Signs Vital Sign Reading Time Taken Comments Blood Pressure 114/83 03/02/2023 9:39 AM CDT Pulse 94 03/02/2023 9:39 AM CDT Temperature 36.6 C (97.8 F) 03/02/2023 9:39 AM CDT Respiratory Rate 18 03/02/2023 9:39 AM CDT Oxygen Saturation 97% 03/02/2023 9:39 AM CDT Inhaled Oxygen Concentration - - Weight 119 kg (262 lb 6 oz) 03/02/2023 9:39 AM C DT Height 152.4 cm (5') 03/02/2023 9:39 AM CDT Body Mass Index 51.24 03/02/2023 9:39 AM CDT Plan of Treatment Health Maintenance Due Date Last Done Comments HIV SCREENING 12/30/2011 HEPATITIS C SCREENING 12/25/2014 DTAP/TDAP/TD VACCINES (1 - Tdap) 12/30/2015 HEPATITIS B VACCINE (1 of 3 - 19+ 3-dose series) 12/30/2015 PAP SMEAR 2017 HPV VACCINE (1 - 3-dose SCDM series) 12/30/2023 COVID-19 VACCINE (1 - 2023-2 5 season) 2024 DEPRESSION SCREENING 07/16/2024 INFLUENZA VACCINE (#1) 2025 ZOSTER VACCINE (1 of 2) 2046 HIB VACCINE Aged Out No longer eligi ble based on patient's age to complete this topic MENINGOCOCCAL (Group B) VACC INE SHARED DECISION-MAKING Aged Out No longer eligibl e based on patient's age to complete this topic MENINGOCOCCAL GROUPS A/C/Y/W VACCINE Aged Out No longer eligible b ased on patient's age to complete this topic PNEUMOCOCCAL VACCINE Aged Out No long er eligible based on patient's age to complete this topic Insurance [facility] Advance Directives * Full Code (Latest Code Status on File) Date Activated Date Inactivated Comments 01/29/2023 7:52 PM 01/30/2023 6:25 PM Care Teams Metal Filer Relationship Specialty Start Date End Date Lu Rodriguez MD [address] [place] [address] PCP - General 01/05/10
--- OUTSIDE RECORDS SUMMARY | 2025-01-29 22:45 | XMS_ITS | Clinical Summary ---
Author Organization [facility] Address [address] [place] [address] Care Team Providers Care Manufacturing Technology Professor Name Role Phone Lu Rodriguez MD Primary Care Provider [phone] Allergies Active Allergy Reactions Criticality Noted Date Comments Penicillins Rash Low 09/06/2023 Medications omeprazole (PRILOSEC) 40 MG capsule Take 1 capsule (40 mg total) by mouth daily. Active busPIRone (BUSPAR) 15 MG tablet Take 1 tablet (15 mg total) by mouth 2 (two) times daily. Active norgestrel-ethi nyl estradiol (CRYSELLE-28) 0.3-30 MG-MCG tablet Take 1 tablet by mouth daily. Active escitalopram (LEXAPRO) 10 MG tablet Take 1 tablet (10 mg total) by mouth daily. Active Social History Tobacco Use Types Packs/Day Years Used Date Smoking Tobacco: Never Smokeless Tobacco: Never Tobacco Cessation:Counseling Given: Not Answered Alcohol Use Standard Drinks/Week Comments Never 0 (1 standard drink = 0.6 oz pur e alcohol) Comments No Sex and Gender Information Value Date Recorded Sex Assigned at Not on file Legal Sex Female 8:39 AM INDUSTRIAL RELATIONS MANAGER Gender Identity Not on file Sexual Orientation Not on file Last Filed Vital Signs Vital Sign Reading Time Taken Comments Blood Pressure 126/95 09/06/2023 9:18 AM INDUSTRIAL RELATIONS MANAGER Pulse 72 09/06/2023 9:30 AM INDUSTRIAL RELATIONS MANAGER Temperature 35.9 C (96.7 F) 09/06/2023 8:52 AM INDUSTRIAL RELATIONS MANAGER Respiratory Rate 10 09/06/2023 9:30 AM INDUSTRIAL RELATIONS MANAGER Oxygen Saturation 99% 09/06/2023 9:30 AM INDUSTRIAL RELATIONS MANAGER Inhaled Oxygen Concentration - - Weight 96.2 kg (212 lb) 09/06/2023 8:52 AM INDUSTRIAL RELATIONS MANAGER Height 152.4 cm (5') 09/06/2023 8:52 AM INDUSTRIAL RELATIONS MANAGER Body Mass Index 41.4 09/06/2023 8:52 AM INDUSTRIAL RELATIONS MANAGER Plan of Treatment Health Maintenance Due Date Last Done Comments Cervical Cancer Screening Pap Smear (Age 21 to 29) Every 3 Years 1996 Cervical Cancer Screening 1996 Annual Physical 12/30/1999 Hepatitis C 2014 COVID-19 Vaccine ( season) 2024 07/13/2021, 10/12/2020, 09/21/2020 DTaP, Tdap and Td Vaccines (6 - Td or Tdap) 09/22/2027 09/21/2017, 01/21/2007, 03/01/2001, Additional history exists Hepatitis B Vaccines Completed 01/25/1998, 05/06/1997, 03/11/1997 Meningococcal Vaccine Completed 02/23/2015 HPV Vaccines Aged Out No longer eligi ble based on patient's age to complete this topic Meningococcal B Vaccine Aged Out No l onger eligible based on patient's age to complete this topic Pneumococcal Vaccine: Pediatrics (0 to 5 Years) and At-Risk Patients (6 to 49 Years) Aged Out No longer eligible based on patient's age to complete this topic RSV Immunizations Under 20 Months Aged Out No longer eligible based on patient's age to complete this topic Insurance [employer] Care Teams Manufacturing Technology Professor Relationship Specialty Start Date End Date Lu Rodriguez MD [address] [place] [id number] PCP - General INTERNAL MEDICINE 09/06/23
--- OUTSIDE RECORDS SUMMARY | 2025-01-29 22:45 | XMS_ITS | Patient Health Record ---
Author Organization [facility] Address [address] [facility] [address] [place] [address] Care Team Providers Care Senior Hardware Design Engineer Name Role Phone Johan Godwin Unavailable [phone] Reason For Referral No Information Medications Medication SIG (Take, Route, Frequency, Duration) Notes Start Date End Date Status Cryselle-28 0.3-30 MG-MCG Oral Active Low-Ogestrel 0.3-30 MG-MCG Oral Active Venlafaxine HCl ER 37.5 MG Oral Active predniSONE 20 MG Oral Act martina Pantoprazole Sodium 40 MG Oral Active Escitalopram Oxalate 10 MG Oral Active Cephalexin 500 MG Oral Ac tive Plan Of Treatment No Information Insurance Providers Payer Name Payer Address Payer Phone Subscriber Number Group Number Insured Name Patient Relationship to Insured Coverage Start Date Coverage End Date [employer] [address] [place] [address] [id number] TEDDY FREDERICK Self - patient is the insured
--- NOTE | 2025-01-29 22:47 | ED_ITS ---
HPI - General Adult General Chief complaint: Abdominal Pain Stated complaint: Abd Pain Time Seen by Provider: 01/29/25 22:44 History of Present Illness HPI narrative: Caryn is a 29F with a PMH of kidney stones and obesity s/p weight loss surgery that presented to the ED with with left flank pain a few hours ago. It is getting worse and she had one episode of non-bloody vomiting. No ny hematuria. No fevers or dyspnea. She took 500mg Tylenol before coming as well as an old hydrocodone and oxycodone tabs. Related Data Home Medications ?Medication ?Instructions ?Recorded ?Confirmed ?Last Taken ?Type buspirone 15 mg tablet 15 mg PO BID 10/22/23 04/11/24 Unknown History escitalopram oxalate 10 mg tablet 10 mg PO DAILY 10/22/23 04/11/24 Unknown History metoprolol succinate 50 mg 50 mg PO DAILY 10/22/23 04/11/24 Unknown History tablet,extended release 24 hr norgestrel 0.3 mg-ethinyl 1 tablet PO DAILY 04/11/24 04/11/24 Unknown History estradiol 30 mcg tablet (Gricel (28)) Allergies Allergy/AdvReac Type Severity Reaction Status Date / Time Penicillins Allergy Severe Redness of Verified 01/29/25 22:53 Skin Review of Systems 2 Review of Systems: All systems reviewed & are unremarkable except as noted in HPI and below PMFSH Past Medical History Medical History Morbid obesity with BMI of 40.0-44.9, adult Depression Anxiety GERD (gastroesophageal reflux disease) Surgical History Surgical History [place] teeth extracted Social History Social History Smoking status: Never smoker Alcohol intake: never Substance use: never Substance use type: does not use Do You Feel Safe in your Home?: Yes Lack of Transportation: No Lack of Food: Never True Current Housing: I Have Housing Concerned About Future Housing: No Difficulty Paying Gas/Electric Bills: No Difficulty Paying for Meds: No Currently Unemployed: Decline to Answer Education: Master's Degree or Higher Difficulty w/ Childcare or Family Care: No Living arrangements: with family Spiritual care concerns: No Exam 2 Const: General: cooperative, healthy appearing, comfortable, no acute distress, well developed, alert, awake and Physically active O rientation/consciousness: oriented to person, oriented to place and oriented to time HENMT: Head: normal to inspection, normocephalic and atraumatic Ears: h earing grossly normal bilaterally and external ears normal Face/Nose/Sinus: N ormal external nose present Eyes: General: appearance normal, both eyes and all related structures P eriorbital: periorbital findings normal Sclera: sclerae normal Pupils: E qual, round and reactive pupils present Neck: Neck: normal visual inspection Chest: Chest palpation & inspection: normal inspection of the chest Resp: Effort & Inspection: normal respiratory effort, able to speak in complete sentences and no respiratory distress Cardio: Jugular venous distension: no JVD GI: Inspection: normal to inspection GI Palp: Yes Soft to palpation A uscultation: normal bowel sounds : Other: Left flank pain Skin: General skin exam: normal color and no rashes or lesions noted Neuro: General: oriented to person, oriented to place and oriented to time Cranial nerves: Yes Equal, round and reactive pupils present Extrem: General: normal to inspection Course Course Emergency Course: Ordered fluids, toradol, CT and labs Labs showed leukocytosis, chemistries and lipase were largely unremarkable. EXAMINATION: CT abdomen pelvis wo con DATE: 01/29/2025 23:52 INDICATION: left flank pain, h/o stones TECHNIQUE: Computed tomography (CT) of the abdomen and pelvis was performed without intravenous contrast. Automated exposure control and iterative reconstruction technique were employed. The dose-length product was 519.43 mGy- cm. COMPARISON: 04/11/2024. FINDINGS: Lower thorax: Unremarkable Liver: Normal. Biliary/Gallbladder: Gallbladder is normal. No bile duct dilation. Pancreas: No mass or duct dilation. Spleen: Normal. Adrenals:No mass. Kidneys: Normal right kidney. Moderate right perinephric stranding/fluid. 5 mm calcification in the proximal right ureter. Mild pelviectasis and caliectasis. GI tract: Prior gastric surgery. Uncomplicated small bowel anastomosis. No small or large bowel dilation. Normal appendix. Mesentery/Peritoneum: No ascites, mass, or free air. Central mesenteric stranding, a chronic finding. Retroperitoneum: No mass. Pelvis: Nearly empty urinary bladder. Normal uterus and bilateral ovaries.. Soft Tissues: Small fat-containing umbilical and supraumbilical hernias. Bones: No acute osseous finding. IMPRESSION: 5 mm calcification in the proximal left ureter, with perinephric stranding that is out of proportion to the degree of hydronephrosis, consider urine leak. Nonspecific chronic central mesenteric stranding. I spoke with Dr. Yip of Urology at [place]. He recommended transfer for possible stent placement. Vital Signs Vital signs: Vital Signs Temperature 97.6 F 01/29/25 22:42 Pulse Rate 98 01/29/25 22:42 Respiratory Rate 18 01/29/25 22:42 Blood Pressure 167/105 H 01/29/25 22:42 Pulse Oximetry 98 01/29/25 22:42 Oxygen Delivery Room Air 01/29/25 22:42 Temperature 98.6 F 01/30/25 03:25 Pulse Rate 81 01/30/25 03:25 Respiratory Rate 18 01/30/25 03:25 Blood Pressure 153/96 H 01/30/25 03:25 Pulse Oximetry 97 01/30/25 03:25 Oxygen Delivery Room Air 01/30/25 03:25 Medical Decision Making Vital Signs Vital Signs: Vital Signs Temperature 97.6 F 01/29/25 22:42 Pulse Rate 98 01/29/25 22:42 Respiratory Rate 18 01/29/25 22:42 Blood Pressure 167/105 H 01/29/25 22:42 Pulse Oximetry 98 01/29/25 22:42 Oxygen Delivery Room Air 01/29/25 22:42 Temperature 98.6 F 01/30/25 03:25 Pulse Rate 81 01/30/25 03:25 Respiratory Rate 18 01/30/25 03:25 Blood Pressure 153/96 H 01/30/25 03:25 Pulse Oximetry 97 01/30/25 03:25 Oxygen Delivery Room Air 01/30/25 03:25 Lab Data 01/29/25 22:59 01/29/25 22:59 Labs: Lab Results 01/29/25 01/29/25 01/29/25 Range/Units 22:46 22:54 22:59 WBC 15.9 H (4.8-10.8) K/mm3 RBC 4.43 (4.20-5.40) M/mm3 Hgb 11.6 L (12.0-15.0) g/dL Hct 36.7 (35.0-49.0) % MCV 82.8 (78.0-102.0) fL MCH 26.2 L (27.0-31.0) pg MCHC 31.6 L (32-36) g/dL RDW 12.8 (11.6-14.4) % Plt Count 308 (150-420) K/mm3 MPV 9.1 L (9.2-11.8) fl Immature Gran % (Auto) 0.4 H (0.0-0.0) % Neut % (Auto) 70.2 H (50.0-70.0) % Lymph % (Auto) 20.2 (18.0-42.0) % Thomas % (Auto) 7.9 (2.0-11.0) % Eos % (Auto) 0.9 L (1.0-6.0) % Baso % (Auto) 0.4 (0.0-1.0) % Lymph # (Auto) 3.21 (1.10-4.50) K/mm3 Thomas # (Auto) 1.26 H (0.10-0.90) K/mm3 Eos # (Auto) 0.15 (0.02-0.50) K/mm3 Baso # (Auto) 0.07 (0.00-0.10) K/mm3 Abs Immat Gran (auto) 0.06 H (0.00-0.00) K/mm3 Absolute Neuts (auto) 11.11 H (1.70-7.20) K/mm3 Absolute Nucleated RBC 0.00 (0.00-0.00) K/mm3 Nucleated RBC % 0.0 (0-0.0) % Sodium 137 (137-145) mmol/L Potassium 4.8 (3.4-5.0) mmol/L Chloride 109 H (98-107) mmol/L Carbon Dioxide 17 L (22-30) mmol/L Anion Gap 11 (4-12) mmol/L BUN 17 (7-17) mg/dL Creatinine 1.21 H (0.7-1.0) mg/dL Estim Creat Clear Calc 68 ml/min Estimated GFR 53 L (59 - ) Glucose 103 (65-110) mg/dL Calculated Osmolality 285 (285-295) mOsm/kg Calcium 8.6 (8.4-10.2) mg/dL Total Bilirubin 0.5 (0.2-1.3) mg/dL AST 30 (14-36) U/L ALT 22 (6-35) U/L Alkaline Phosphatase 65 (38-126) U/L Total Protein 6.8 (6.3-8.2) g/dL Albumin 4.0 (3.5-5.1) g/dL Lipase 232 (23-300) U/L Urine Color Light yellow (Yellow) Urine Appearance Clear (Clear) Urine pH 6.0 (5.0-8.0) Ur Specific Kirby >= 1.030 H (1.010-1.020) Urine Protein Trace H (Negative) Urine Glucose (UA) Negative (Negative) Urine Ketones Trace H (Negative) Ur Blood (Man) Negative (Negative) Urine Nitrate Negative (Negative) Urine Bilirubin Negative (Negative) Urine Urobilinogen 0.2 (0.2-1.0) mg/dL Leukocyte Esterase Rfl Negative (Negative) DULCE/UL Urine RBC 0-2 (0-2) /hpf Urine WBC 4-6 H (0-3) /hpf Ur Squamous Epith Cells Moderate H (Few) /hpf Urine Bacteria Trace (None) /hpf Urine Test Negative Discharge Plan Discharge Clinical Impression: Ureterolithiasis, Leakage of urine from ureter Patient Disposition: Acute Care Hospital Condition: Serious Patient Language: Setswana Prescriptions: No Action Gricel (28) 0.3-30 mg-mcg tablet 1 tablet PO DAILY methylprednisolone [Medrol] 4 mg tablet 4 mg PO TID 2 Days Qty: 6 0RF hydrocodone-acetaminophen 5-325 mg tablet 1 tablet PO Q8H PRN (Reason: pain) Qty: 20 0RF tamsulosin [Flomax] 0.4 mg capsule 0.4 mg PO DAILY 30 Days Qty: 30 0RF ciprofloxacin HCl [Cipro] 500 mg tablet 500 mg PO BID 7 Days Qty: 14 0RF buspirone 15 mg tablet 15 mg PO BID escitalopram oxalate 10 mg tablet 10 mg PO DAILY metoprolol succinate 50 mg tablet extended release 24 hr 50 mg PO DAILY Follow-up/Referrals: Lu Rodriguez MD [Primary Care Provider] -
[2025-01-29] MEDS: Please enter patient height and weight for medication dosing 1 EACH XX (23:01)
[2025-01-29 23:03] LABS: Hematocrit 36.7 % (35.0-49.0); Hemoglobin 11.6 g/dL (12.0-15.0); Immature Granulocyte Percent A 0.4 % (0.0-0.0); Lymphocytes Absolute Auto 3.21 K/mm3 (1.10-4.50); Mean Corpuscular HGB Conc 31.6 g/dL (32-36); Mean Corpuscular Hemoglobin 26.2 pg (27.0-31.0); Mean Corpuscular Volume 82.8 fL (78.0-102.0); Nucleated Red Blood Cells Absolute Auto 0.00 K/mm3 (0.00-0.00); Nucleated Red Blood Cells Perc 0.0 % (0-0.0); Platelet Count Result 308 K/mm3 (150-420); Red Blood Count 4.43 M/mm3 (4.20-5.40); White Blood Count 15.9 K/mm3 (4.8-10.8)
[2025-01-29] MEDS: SODIUM CHLORIDE 0.9% IV 1,000 ML 999 ML IV CONT (23:03)
[2025-01-29] MEDS: KETOROLAC 15 MG/ML VIAL (*BKC) IV PUSH (23:03)
[2025-01-29] MEDS: ONDANSETRON INJ 4 MG/2 ML VIAL IV PUSH (23:04)
--- NOTE | 2025-01-29 23:10 | PC.NURSE ---
MOTHER AT THE BEDSIDE. DENIES ANY NEEDS AT THIS TIME. AWARE THAT A URINE SAMPLE IS NEEDED. IV FLUIDS INFUSING TO RIGHT AC. SITE WITHOUT REDNESS OR EDEMA. CALL LIGHT IN REACH.
[2025-01-29 23:24] LABS: Alanine Aminotransferase 22 U/L (6-35); Albumin Level 4.0 g/dL (3.5-5.1); Alkaline Phosphatase 65 U/L (38-126); Anion Gap 11 mmol/L (4-12); Aspartate Amino Transferase 30 U/L (14-36); Bilirubin,Total 0.5 mg/dL (0.2-1.3); Blood Urea Nitrogen 17 mg/dL (7-17); Calcium 8.6 mg/dL (8.4-10.2); Carbon Dioxide 17 mmol/L (22-30); Chloride 109 mmol/L (98-107); Estimated CRCL calculation 68 ml/min; Estimated Glomerular Filt Rate 53; Glucose 103 mg/dL (65-110); Lipase 232 U/L (23-300); Osmolality Calculated 285 mOsm/kg (285-295); Potassium 4.8 mmol/L (3.4-5.0); Sodium 137 mmol/L (137-145); Total Protein 6.8 g/dL (6.3-8.2)
--- NOTE | 2025-01-29 23:31 | PC.NURSE ---
PATIENT IS GOING TO TRY AND GIVE URINE SAMPLE.
--- OUTSIDE RECORDS SUMMARY | 2025-01-29 23:34 | XMS_ITS | Clinical Summary ---
Author Organization [facility] Address [address] [place] [address] Care Team Providers Care Prescription Clerk Lenses Name Role Phone Lu Rodriguez MD Primary Care Provider [phone] Allergies Active Allergy Reactions Criticality Noted Date [...] on file Legal Sex Female 8:39 AM FIELD CANE SCALER HELPER Gender Identity Not on file Sexual Orientation Not on file Last Filed Vital Signs Vital Sign Reading Time Taken Comments Blood Pressure 126/95 09/06/2023 9:18 AM FIELD CANE SCALER HELPER Pulse 72 09/06/2023 9:30 AM FIELD CANE SCALER HELPER Temperature 35.9 C (96.7 F) 09/06/2023 8:52 AM FIELD CANE SCALER HELPER Respiratory Rate 10 09/06/2023 9:30 AM FIELD CANE SCALER HELPER Oxygen Saturation 99% 09/06/2023 9:30 AM FIELD CANE SCALER HELPER Inhaled Oxygen Concentration - - Weight 96.2 kg (212 lb) 09/06/2023 8:52 AM FIELD CANE SCALER HELPER Height 152.4 cm (5') 09/06/2023 8:52 AM FIELD CANE SCALER HELPER Body Mass Index 41.4 09/06/2023 8:52 AM FIELD CANE SCALER HELPER Plan of Treatment Health Maintenance Due Date [...] patient's age to complete this topic Insurance [facility] Care Teams Prescription Clerk Lenses Relationship Specialty Start Date End Date Lu Rodriguez MD [address] [place] [phone] PCP - General INTERNAL MEDICINE 09/06/23
--- OUTSIDE RECORDS SUMMARY | 2025-01-29 23:34 | XMS_ITS | Clinical Summary ---
Author Organization [facility] Address [address] [place] [address] Care Team Providers Care Dinkey Locomotive Engineer Name Role Phone Lu Rodriguez MD Primary Care Provider [phone] Source Comments [facility],non-owned Affiliates and Associated Physician Practices is amultiple site organization consisting of ambulatory clinics and hospital sitesin [place], [place], [place] and [place]. This disclosure is being madepursuant to the Care Everywhere program and may not contain all information available regarding this patient. Last updated 18.[facility] Allergies Active Allergy Reactions Criticality Noted Date [...] and heating? Not hard at all 01/29/2023 [facility] - Occupational Stress [...] place to sleep or slept in a senior care (including now)? No 01/29/2023 Comments No Sex and Gender Information Value Date Recorded Sex Assigned at Female 09/22/2022 1:21 PM MINERAL ENGINEER Legal Sex Female 7:34 AM MINERAL ENGINEER Gender Identity Female 09/22/2022 1:21 PM MINERAL ENGINEER Sexual Orientation Straight 09/22/2022 1: 21 PM MINERAL ENGINEER Last Filed Vital Signs Vital Sign Reading [...] patient's age to complete this topic Insurance [facility] Advance Directives * Full Code (Latest Code Status on File) Date Activated Date Inactivated Comments 01/29/2023 7:52 PM 01/30/2023 6:25 PM Care Teams Dinkey Locomotive Engineer Relationship Specialty Start Date End Date Lu Rodriguez MD [address] [place] [address] PCP - General 01/05/10
[2025-01-29 23:45] LABS: Add Urine Microscopic? YES; Appearance Urine Clear (Clear); Glucose Urine UA Negative (Negative); Leukocyte Esterase Ur Negative LEU/UL (Negative); Nitrate Urine Negative (Negative); Specific Grav Ur >= 1.030 (1.010-1.020)
--- NOTE | 2025-01-29 23:54 | PC.NURSE ---
PATIENT WAS TRANSPORTED DOWN TO CT AND RETURNED TO ROOM VIA WHEEL CHAIR
[2025-01-29 23:59] LABS: Pregnancy On Board Control Positive
--- NOTE | 2025-01-30 00:54 | PC.NURSE ---
PATIENT RESTING ON STRETCHER. MOTHER AT HER SIDE. NO NEEDS VOICED. CURRENTLY WAITING ON STAT RAD FOR CT RESULTS
[2025-01-30] MEDS: MORPHINE SULFATE (*CRX) 2 MG/ML INJ IV PUSH (01:25)
--- NOTE | 2025-01-30 01:32 | PC.NURSE ---
PATIENT RESTING ON STRETCHER. MOTHER AT HER SIDE. CURRENTLY DENIES ANY NEEDS. CALL LIGHT IN REACH.
[2025-01-30 02:41] VITALS: BP 149/100; PULSE 77; RESP 16; O2SAT 96
--- NOTE | 2025-01-30 02:47 | PC.NURSE ---
RESTING QUIETLY ON STRETCHER. CURRENTLY WAITING ON BED ASSIGNMENT FROM [facility]. DENIES ANY NEEDS AT THIS TIME. CALL LIGHT IN REACH
[2025-01-30 03:25] VITALS: BP 153/96; PULSE 81; RESP 18; TEMP 37; O2SAT 97
== END 2025-01-30 03:37 | disposition short-term general hospital (02) ==
PROVIDERS: Emergency Provider Family Medicine; PCP Internal Medicine
DX: N20.1 Calculus of ureter (principal)
CPT/HCPCS: 36415; 74176; 80053; 81001; 81025; 83690; 85025; 96374; 96375; 99285; J1885; J2270; J2405; J7030